=== PATIENT | male | born 1950 | race Caucasian/White ===

== ENCOUNTER 2017-01-03 12:06 | Inpatient (IN) | payer OTHER ==
[~2017-01-03] VITALS: Ht 167.6 cm; Wt 92.8 kg
--- NOTE | ~2017-01-03 | 2DMMODE ---
[facility] [address] [place] [address] 2 D/M-MODE ECHOCARDIOGRAM Name: EMILY DIOR Piero Room #: 301-I [facility] IN ..#: [id number] Admission: 01/03/17 Attend Phys: Salomón Blount, Discharge: Date of : 46 Date of Service: 01/04/17 1509 Report #: [id number] THIS REPORT FOR: //name// APPROVED REPORT Study performed: 01/04/2017 12:13:44 EXAM: Comprehensive 2D, Doppler, and color-flow Echocardiogram Patient Location: Bedside Room #: 301 Blood Pressure: 142/82 mmHg HR: 108 bpm Rhythm: Tachycardia Other Information Study Quality: Fair/Poor parasternal window Technically limited study due to lung disease. Indications Chronic respiratory failure, Pulmonary embolism. Hx: COPD 2D Dimensions RVDd: 32.49 mm LVEF(%): 56.18 (>50%) IVSd: 11.21 (7-11mm) LVOT Diam: 23.79 (18-24mm) LVDd: 42.21 mm PWd: 11.25 (7-11mm) LVDs: 29.94 (25-40mm) Aortic Root: 37.64 mm Herrera's LVEF: 56.18 % Volumes Left Atrial Volume (Systole) Single Plane 4CH: 32.09 mL Single Plane 2CH: 34.38 mL LA ESV Index: 18.00 mL/m2 Aortic Valve AoV Peak Butch.: 1.39 m/s AO Peak Gr.: 7.69 mmHg LVOT Max P.72 mmHg LVOT Max V: 1.20 m/s Mitral Valve E/A Ratio: 0.8 [facility] [address] [place] [address] 2 D/M-MODE ECHOCARDIOGRAM Name: EMILY DIOR Room #: 301-I [facility] IN [facility]#: [id number] Admission: 01/03/17 Attend Phys: Salomón Blount, Discharge: Date of : 46 Date of Service: 01/04/17 1509 Report #: [id number] MV Decel. Time: 183.63 ms MV E Max Butch.: 0.75 m/s MV A Butch.: 0.91 m/s MV PHT: 53.25 ms Pulmonary Valve PV Peak Butch.: 1.08 m/s PV Peak Gr.: 4.67 mmHg Pulmonary Vein P Vein S: 72.7 m/s P Vein D: 38.9 m/s Tricuspid Valve RAP Estimate: 10.00 mmHg Left Ventricle The left ventricle is normal size. There is normal LV segmental wall motion. There is normal left ventricular wall thickness. Left ventricular systolic function is normal. LVEF is 60%. Grade I - abnormal relaxation pattern. Right Ventricle The right ventricle is normal size. The right ventricular systolic function is normal. Atria The left atrium size is normal. The right atrium size is normal. Aortic Valve The aortic valve is not well visualized. No aortic regurgitation is present. There is no aortic valvular stenosis. Mitral Valve The mitral valve is normal in structure. There is no mitral valve regurgitation noted. No evidence of mitral valve stenosis. Tricuspid Valve The tricuspid valve is normal in structure. There is no tricuspid valve regurgitation noted. Pulmonic Valve Pulmonic valve is not well visualized. Great Vessels Aortic root is borderline dilated. Ascending aorta is not well [place] [address] [place] [address] 2 D/M-MODE ECHOCARDIOGRAM Name: EMILY DIOR Room #: 301-I ADM IN .R.#: [id number] Admission: 01/03/17 Attend Phys: Salomón Blount, Discharge: Date of : 46 Date of Service: 01/04/17 1509 Report #: [id number] visualized. IVC is normal in size and collapses >50% with inspiration. Pericardium There is no pericardial effusion. <Conclusion> The left ventricle is normal size. LVEF is 60%. The aortic valve is not well visualized. The mitral valve is normal in structure. The tricuspid valve is normal in structure. Aortic root is borderline dilated. Ascending aorta is not well visualized. <ELECTRONICALLY SIGNED> By: Varun Schroeder MD 01/04/17 1509 1509 1509 Varun Schroeder MD /INF
--- NOTE | ~2017-01-03 | HC ---
[facility] [place] [address] CONSULTATION Name: EMILY DIOR Room #: 301-I ADM IN M.R.#: [id number] Admission: 01/03/17 Attend Phys: Salomón Blount MD Discharge: Date of : 46 Report #: [id number] THIS REPORT FOR: //name// CC: Dr. Nadeen Michelle MD REASON FOR CONSULTATION: Abnormal T12 lesion. HISTORY OF PRESENT ILLNESS: The patient is a 66-year-old gentleman with fairly severe COPD, also urinary difficulties. He was begun on Flomax several weeks ago. He has just not felt good in several respects, said that he had felt more short of breath than usual and was converted to pulmonary rehab as talked to the [facility]. There, he had a CT angiogram, which found both bilateral pulmonary emboli as well as a questionable lesion at T12, described as a lesion that may be alright within the left pedicle, and did have some cortical abnormalities. There was no other change in the lung and there was no mention about the esophagus or abnormalities at that point of that type. The CT angio was described as showing the left pedicle was with a lucid lesion with a sclerotic lateral margin, but absent cortex of the medial pedicle. There was soft tissue density associated with this. They also mentioned cholecystectomy, right rib fracture in the past, small duodenal diverticulum and post rupture of the right upper lobe. Emboli were seen in the right lower lobe, pulmonary artery extending through the segmental branch and multiple subsegmental branches. There were also emboli in the left lower lobe segmental and a few subsegmental pulmonary artery branches. No CT evidence of right heart strain. The patient denies before this any fevers or chills, had not really had any new headaches, had had some swallowing troubles, and he said just felt like food gets only [facility] down, Flomax. He has also had some change in his bowels. Weight has been stable. No new arm or leg swelling. No new belly pain, suggests some slight queasiness, but not a lot more than usual. No blood in his urine or stool. He did have one episode where he has like coughed or gagged and a small blood streak of bright red blood last Monday. PAST MEDICAL HISTORY: Notable for sudden acute hearing loss in the past, also diverticulitis with partial colon resection maybe 20 years ago, center benign lung lesion resected a number of years ago, also appendectomy. Also, it sounds like he has had COPD, been on prednisone for the last year with Dr. Senior, also uses oxygen at home, had not had blood clots before. FAMILY HISTORY: Father had blood clots and an aneurysm when he was older. Mother had COPD. Aunt had lung cancer, had a brother with colon cancer may be in his 60s. Three sisters and four children alive and well. [address] [place] [address] CONSULTATION Name: BARBYEMILY E Room #: 301-I ADM IN ..#: [id number] Admission: 01/03/17 Attend Phys: Salomón Blount MD Discharge: Date of : 46 Report #: [id number] SOCIAL HISTORY: He is retired. 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 Alcohol was social, not excessive. No street drugs. Also, on urology, he had [facility] Evidently, he had been having urinary retention. They said [facility] Dr. Michelle had done some type of test and thought the risk for this was low and began him on Flomax instead. He has no known cancer. He has not really had back pain. CURRENT MEDICATIONS: Include oxycodone 5 mg q.4 p.r.n., Lovenox 100 mg b.i.d., ipratropium, albuterol q.4 respiratory, methylprednisolone 80 mg q.6 as an outpatient. He has meds that also possibly included oxycodone, prednisone 10 mg, albuterol, roflumilast, Xanax, Spiriva, and Symbicort. PHYSICAL EXAMINATION: GENERAL: The patient appears his stated age. VITAL SIGNS: Height is 5 feet 6 inches, weight is 204 pounds that is also 167.6 cm or 92.8 kg. Blood pressure is 142/82, 94% O2 sat, respirations 18, pulse 91, and temperature is 96. MOOD: The patient is alert and pleasant, though somewhat anxious and short of air and hard of hearing. NEUROLOGIC: He is alert and oriented, though hard of hearing. LUNGS: Have some occasional coughing and soft rhonchi, has bilateral symmetrical expansion. He is with a barrel chest. HEART: Appears to be regular rate. No enlarged lymph nodes in the supraclavicular, cervical, axillary, or inguinal region. ABDOMEN: Obese. No organomegaly. He does have some evidence of ecchymosis from recent shots. EXTREMITIES: With some slight swelling, he says that has been an issue for may be several weeks. IMAGING: Note that recent ultrasound of legs does not show clots. ASSESSMENT AND PLAN: 1. Questionable T12 leads. We will check MRI and suggest. We will also check CT abdomen and pelvis to see if there are other abnormalities. We will check serum protein electrophoresis. We will consult interventional radiology to begin discussion about possible biopsy and assess. 2. Recent bilateral pulmonary emboli, no specific cause other than old age and vascular history. We will check a couple of hypercoag panel type tests. We will also continue with Lovenox. This could be malignancy related if malignancy is found. We will also need to discuss intervention or interruption of anticoagulation. May consider echo to assess for heart strain. 3. History of chronic obstructive pulmonary disease, on oxygen and steroids at home, now on higher levels of oxygen and also steroids. 4. Nerves: [place] [address] CONSULTATION Name: EMILY DIOR Room #: 301-I ADM IN M.R.#: [id number] Admission: 01/03/17 Attend Phys: Salomón Blount MD Discharge: Date of : 46 Report #: [id number] 5. Chronic obstructive pulmonary disease: Aerosol treatments. 6. Elevated PSA, urinary retention. We will defer to others whether this needs evaluation. 7. Questionable swallowing difficulties. We will need CAT scan of the chest reviewed at this point. I could also consider GI evaluation or speech path. We will follow with you. <ELECTRONICALLY SIGNED> By: Jesus Sherman MD 01/05/17 0625 0914 2320 Jesus Sherman MD /nt
[2017-01-03 12:23] VITALS: BP 159/89
[2017-01-03] MEDS ORDERED: ENDOCET 5-3251 EACH PO (13:10)
[2017-01-03] MEDS ORDERED: XANAX 0.5 MG0.5 MG PO (13:12)
[2017-01-03] MEDS ORDERED: SPIRIVA INH (13:14)
[2017-01-03] MEDS ORDERED: SYMBICORT80 MCG/4.1 INH (13:15)
[2017-01-03] MEDS ORDERED: PREDNISONE 20 M20 MG PO (13:16)
[2017-01-03] MEDS ORDERED: FLOMAX0.4 MG PO (13:17)
[2017-01-03 13:20] LABS: HEMATOCRIT 43.5 % (42.0-52.0); HEMOGLOBIN 14.4 gm/dL (14.0-18.0); MCH 29.9 pg (26.0-34.0); MCHC 33.2 g/dL (28.0-37.0); MCV 90.3 fL (80.0-100.0); RBC 4.82 mil/uL (4.50-6.00); WBC 11.1 thou/uL (4.0-11.0)
[2017-01-03 13:42] LABS: CALCIUM 8.8 mg/dL (8.5-10.1); CREATININE 1.1 mg/dL (0.7-1.3); POTASSIUM 4.5 mmol/L (3.5-5.1); TOTAL BILIRUBIN 0.3 mg/dL (<0.1-1.0); TOTAL PROTEIN 6.2 g/dL (6.4-8.2)
[2017-01-03 16:19] VITALS: BP 180/88
[2017-01-03 16:29] LABS: URINE BILIRUBIN NEGATIVE (Negative); URINE BLOOD NEGATIVE (Negative); URINE COLOR YELLOW; URINE GLUCOSE-RANDOM* 1+ (Negative); URINE KETONES NEGATIVE (Negative); URINE LEUKOCYTES-REFLEX NEGATIVE (Negative); URINE PROTEIN (DIPSTICK) NEGATIVE (Negative); URINE UROBILINOGEN 0.2 E.U./dl (0.2-1.0)
[2017-01-03 20:00] VITALS: BP 176/91
[2017-01-04 04:00] VITALS: BP 141/98
[2017-01-04 05:55] LABS: HEMATOCRIT 42.1 % (42.0-52.0); HEMOGLOBIN 13.8 gm/dL (14.0-18.0); MCH 29.6 pg (26.0-34.0); MCHC 32.8 g/dL (28.0-37.0); MCV 90.4 fL (80.0-100.0); RBC 4.66 mil/uL (4.50-6.00); WBC 15.5 thou/uL (4.0-11.0)
[2017-01-04 07:20] VITALS: BP 142/82
[2017-01-04 15:15] VITALS: BP 151/50
[2017-01-04 19:22] VITALS: BP 139/79
[2017-01-05 03:20] VITALS: BP 154/92
[2017-01-05 08:11] VITALS: BP 119/74
[2017-01-05] MEDS ORDERED: PREDNISONE 10 M10 MG PO (14:23)
[2017-01-05] MEDS ORDERED: XARELTO15 MG PO (14:24)
[2017-01-05] MEDS ORDERED: XARELTO20 MG PO (14:25)
[2017-01-05] MEDS ORDERED: NYSTATIN 1100000 U/M SW&SWALLOW (14:30)
[2017-01-05 15:13] VITALS: BP 119/74
[2017-01-05 15:35] VITALS: BP 119/74
[2017-01-09 10:06] LABS: A/G RATIO 1.2 (0.7-1.7); ALBUMIN 2.9 g/dL (2.9-4.4); ALPHA 1 0.2 g/dL (0.0-0.4); BETA 0.8 g/dL (0.7-1.3); GAMMA 0.5 g/dL (0.4-1.8); M-SPIKE Not Observed g/dL (Not Observed)
== END 2017-01-05 15:50 | disposition home health service (06) | DRG 176 ==
LOC: 3N 12:06
PROVIDERS: Internal Medicine; Internal Medicine Hematology & Oncology
DX: I26.99 Other pulmonary embolism without acute cor pulmonale (principal); B37.89 Other sites of candidiasis; J44.1 Chronic obstructive pulmonary disease with (acute) exacerbation; J96.10 Chronic respiratory failure, unspecified whether with hypoxia or hypercapnia; R33.9 Retention of urine, unspecified; H91.90 Unspecified hearing loss, unspecified ear; R13.10 Dysphagia, unspecified; K21.9 Gastro-esophageal reflux disease without esophagitis; Z90.49 Acquired absence of other specified parts of digestive tract; Z99.81 Dependence on supplemental oxygen; Z88.2 Allergy status to sulfonamides; Z82.49 Family history of ischemic heart disease and other diseases of the circulatory system; Z80.1 Family history of malignant neoplasm of trachea, bronchus and lung; Z82.5 Family history of asthma and other chronic lower respiratory diseases; Z80.0 Family history of malignant neoplasm of digestive organs; Z79.899 Other long term (current) drug therapy
CPT/HCPCS: 10096